=== PATIENT | male | born 1995 | race Two or more races ===

== ENCOUNTER 2021-09-22 01:06 | Emergency (ER) | payer OTHER ==
[~2021-09-22] VITALS: Ht 172.7 cm; Wt 81.6 kg
[2021-09-22 01:14] VITALS: BP 135/84
== END 2021-09-22 08:10 | disposition home or self-care (01) ==
LOC: ER 01:10
DX: S39.012A Strain of muscle, fascia and tendon of lower back, initial encounter (principal); S16.1XXA Strain of muscle, fascia and tendon at neck level, initial encounter; V49.9XXA Car occupant (driver) (passenger) injured in unspecified traffic accident, initial encounter; Y93.89 Activity, other specified; Y92.89 Other specified places as the place of occurrence of the external cause; Y99.8 Other external cause status
CPT/HCPCS: 72040; 72100

== ENCOUNTER 2021-10-17 13:12 | Emergency (ER) | payer OTHER ==
[~2021-10-17] VITALS: Ht 175.3 cm; Wt 81.6 kg
[2021-10-17 16:48] VITALS: BP 132/85
== END 2021-10-17 17:18 | disposition home or self-care (01) ==
LOC: ER 13:12
DX: S39.012A Strain of muscle, fascia and tendon of lower back, initial encounter (principal); M62.838 Other muscle spasm; V43.52XA Car driver injured in collision with other type car in traffic accident, initial encounter; Y93.89 Activity, other specified; Y92.89 Other specified places as the place of occurrence of the external cause; Y99.8 Other external cause status

== ENCOUNTER 2022-06-26 09:53 | Emergency (ER) | payer OTHER ==
[~2022-06-26] VITALS: Ht 172.7 cm; Wt 75.0 kg
[2022-06-26 11:41] VITALS: BP 129/80
[2022-06-26] MEDS ORDERED: IBUP800T27 PO (11:53)
== END 2022-06-26 11:58 | disposition home or self-care (01) ==
LOC: ER 09:53
DX: S39.012A Strain of muscle, fascia and tendon of lower back, initial encounter (principal); V43.52XA Car driver injured in collision with other type car in traffic accident, initial encounter; Y93.89 Activity, other specified; Y92.410 Unspecified street and highway as the place of occurrence of the external cause; Y99.8 Other external cause status
CPT/HCPCS: 72100